=== PATIENT | male | born 1950 | race Asian ===

== ENCOUNTER 2018-08-24 10:58 | Emergency (ER) | payer MEDICARE, OTHER ==
[2018-08-24] MEDS ORDERED: predniSONE 20 MG TAB ONE (11:32)
== END 2018-08-24 11:57 | disposition home or self-care (01) ==
LOC: SCSER 10:58
DX: M54.41 Lumbago with sciatica, right side (principal); E78.5 Hyperlipidemia, unspecified; M19.90 Unspecified osteoarthritis, unspecified site; E11.40 Type 2 diabetes mellitus with diabetic neuropathy, unspecified; E03.9 Hypothyroidism, unspecified; Z79.891 Long term (current) use of opiate analgesic; Z79.899 Other long term (current) drug therapy; Z79.82 Long term (current) use of aspirin
CPT/HCPCS: 99283

== ENCOUNTER 2019-01-06 07:03 | Outpatient (CLI) | payer MEDICARE, OTHER ==
--- NOTE | 2019-01-06 07:55 | ULT ---
Carotid duplex sonogram HISTORY: Carotid bruit. FINDINGS: Right: Scattered plaque. Color and spectral Doppler evaluation, peak systolic velocity of 104 cm/s, a nd IC to CC ratio 1.1 suggest no hemodynamically significant stenosis within the extra cranial right ICA. Antegrade flow within the vertebral artery. Left: Scattered plaque. Color and spectral Doppler evaluation, peak systolic velocity of 121 cm/s, an d IC to CC ratio 1.2 suggest no hemodynamically significant stenosis within the extracranial left ICA. Antegrade flow within the vertebral artery. IMPRESSION: Atherosclerosis. No sonographic evidence of significant extracranial ICA stenosis.
--- NOTE | 2019-01-06 07:56 | ULT ---
Sonogram of abdominal aorta with duplex evaluation HISTORY: Aneurysm screening. FINDINGS: Good color and spectral Doppler flow within the abdominal aorta. Scattered plaque. Proximal abdominal aorta 1.8 cm. Mid abdominal aorta 1.5 cm. The distal abdominal aorta 1.2 cm. Proximal common iliac arteries have a normal appearance. IMPRESSION: Atherosclerosis. No sonographic evidence of abdominal aortic aneurysm
== END 2019-01-06 07:04 | disposition home or self-care (01) ==
LOC: SCSULT 07:03
PROVIDERS: ATTEND Family Medicine
DX: Z13.6 Encounter for screening for cardiovascular disorders (principal); R09.89 Other specified symptoms and signs involving the circulatory and respiratory systems; I70.0 Atherosclerosis of aorta; I65.23 Occlusion and stenosis of bilateral carotid arteries
CPT/HCPCS: 76775; 93880